=== PATIENT | male | born 1990 | race African-American/Black ===

== ENCOUNTER 2024-11-05 06:50 | Emergency (ER) | payer MEDICAID ==
[~2024-11-05] VITALS: Ht 177.8 cm; Wt 78.0 kg
[2024-11-05 07:54] VITALS: O2SAT 99
[2024-11-05] MEDS ORDERED: AM250 MT (08:44)
[2024-11-05] MEDS ORDERED: PSEU120T56 MT (08:44)
[2024-11-05] MEDS ORDERED: IBUP-2029 MT (08:44)
[2024-11-05] MEDS ORDERED: BENZ100C86 MT (08:49)
[2024-11-05] MEDS: AMOXICILLIN 500MG CAPSULE PO ONE (09:08)
[2024-11-05] MEDS: IBUPROFEN 600MG TABLET PO ONE (09:08)
[2024-11-05 09:25] VITALS: BP 125/71; PULSE 60; RESP 16; TEMP 36.55848; O2SAT 99
== END 2024-11-05 09:29 | disposition home or self-care (01) ==
LOC: ER 06:50
DX: H66.92 Otitis media, unspecified, left ear (principal); J06.9 Acute upper respiratory infection, unspecified
CPT/HCPCS: 99283